=== PATIENT | male | born 1965 | race Hispanic/Latino ===

== ENCOUNTER → 2019-08-29 | Outpatient (CLI) | payer OTHER ==
--- NOTE | 2019-08-29 11:21 | Diagnostic Imaging Report ---
EXAMINATION: ABDOMEN-1VIEW (KUB), SP LUMBAR, COMPLETE MIN 4VW INDICATION: Back pain, hip pain COMPARISON: None FINDINGS: AP, lateral and oblique images of the lumbar spine and AP image of the abdomen were obtained. No acute fracture or dislocation. Vertebral body heights are well-maintained. Alignment is anatomic. Oblique views demonstrate no evidence of spondylolysis. No substantial degenerative change. Abdominal radiographs show nonobstructive bowel gas pattern and no free air. The minimally visualized lung bases appear clear. Surgical clips in the right and left pelvis. IMPRESSION: No acute osseous injury. Normal lumbar spine alignment. Nonobstructive bowel gas pattern. No free air. Signed by: Caty Le MD on 08/29/2019 11:19 AM
== END ==
LOC: RAD 10:35
PROVIDERS: ATTEND Family Medicine
DX: M54.5 Low back pain (principal); M25.551 Pain in right hip
CPT/HCPCS: 72110; 74018